=== PATIENT | female | born 1985 | race Two or more races ===

== ENCOUNTER 2023-07-18 18:52 | Emergency (ER) | payer SELFPAY ==
[~2023-07-18] VITALS: Ht 152.4 cm; Wt 81.0 kg
[2023-07-18] MEDS ORDERED: ONDANSETRON HCL 4 MG/2 ML VIAL IV ONE ×2 (19:30→22:30)
[2023-07-18] MEDS ORDERED: ACETAMINOPHEN 325 MG TAB PO ONE (21:00)
[2023-07-18 21:45] VITALS: PULSE 88; RESP 20; O2SAT 97
[2023-07-18] MEDS ORDERED: MORPHINE SULFATE 4 MG/ML SYR/VIAL IV ONE (22:30)
[2023-07-18] MEDS ORDERED: CYCL-837 PO (23:30)
[2023-07-18] MEDS ORDERED: HYDR-4902 PO (23:30)
[2023-07-18 23:56] VITALS: BP 136/77; PULSE 94; RESP 18; TEMP 98.2; O2SAT 96
== END 2023-07-18 23:57 | disposition home or self-care (01) ==
LOC: EDBD 18:52 → ER 18:52
DX: S16.1XXA Strain of muscle, fascia and tendon at neck level, initial encounter (principal); S39.012A Strain of muscle, fascia and tendon of lower back, initial encounter; V49.49XA Driver injured in collision with other motor vehicles in traffic accident, initial encounter; Y93.I9 Activity, other involving external motion; Y92.89 Other specified places as the place of occurrence of the external cause; Y99.8 Other external cause status
CPT/HCPCS: 70450; 71250; 72125; 74176; 96374; 96375; 96376; 99285; J2270; J2405